=== PATIENT | female | born 1990 | race Caucasian/White ===

== ENCOUNTER 2018-09-12 09:39 | Emergency (ER) | END 2018-09-12 10:50 | disposition home or self-care (01) ==

== ENCOUNTER 2019-02-17 19:06 | Emergency (ER) | payer SELFPAY ==
[~2019-02-17] VITALS: Ht 165.1 cm; Wt 71.9 kg
[~2019-02-17 19:06] MED LIST: AZIT250T PO; DOXY100T20 PO; IBUP-1561 PO; POLY10DR19 BOTH EYES
[2019-02-17 19:08] VITALS: BP 164/58; PULSE 118; RESP 19; Ht 165.1 cm; Wt 71.9 kg
[2019-02-17] MEDS ORDERED: HYDROCODONE/APAP (5/325) TAB PO ONE (19:30)
[2019-02-17] MEDS ORDERED: CLIN300C10 PO (19:55)
[2019-02-17] MEDS ORDERED: SULF1TAB31 PO (19:55)
[2019-02-17] MEDS ORDERED: BACITRACIN 0.9 GM OINT TOP ONE (20:00)
--- NOTE | 2019-02-17 20:09 | ERD ---
ER Documentation Chief Complaint Chief Complaint PITBULL DOG BITE RIGHT ARM, LAST NIGHT HPI 28-year-old female presents with complaint of dog bite to the right arm last night. Says that she was walking and a dog that was on a leash came up to her bit her on her arm and then the python architect and the dog both ran away. Has not been taking any treatments. He denies any fevers, chills, nausea, vomiting, diarrhea, or any other systemic symptoms. Allergic to penicillins and amoxicillin. Denies medical history. ROS All systems reviewed and are negative except as per history of present illness. Medications Home Meds Active Scripts Hydrocodone/Acetaminophen ([place] 5-325 Tablet) 1 Each Tablet, 1 TAB PO Q6H PRN for PAIN, #7 TAB Prov:TONI KWAN 02/17/19 Sulfamethoxazole/Trimethoprim* (Bactrim Ds* Tablet) 1 Each Tablet, 1 TAB PO BID for animal bite for 10 Days, #14 TAB Prov:TONI KWAN 02/17/19 Clindamycin Hcl* (Clindamycin Hcl*) 300 Mg Capsule, 300 MG PO QID for animal bite for 10 Days, CAP Prov:TONI KWAN 02/17/19 Polymyxin B Sulfate-TMP* (Polymyxin B-TMP Eye Drops*) 10 Ml Drops, 1 DROP BOTH EYES QID for 7 Days, EA Prov:ALEJANDRO KAUR MD 09/12/18 Ibuprofen* (Motrin*) 400 Mg Tab, 400 MG PO Q8, #15 TAB Prov:ALEJANDRO KAUR MD 09/12/18 Doxycycline Hyclate* (Doxycycline Hyclate*) 100 Mg Tablet.dr, 100 MG PO BID for 7 Days, TAB Prov:ALEJANDRO KAUR MD 09/12/18 Azithromycin* (Zithromax*) 250 Mg Tablet, 250 MG PO .[place] DIRECTED, #6 TAB TAKE 500 MG (2 TABS) THE FIRST DAY THEN 250 MG (1 TAB) DAYS 2-5 Prov:ALEJANDRO KAUR MD 09/12/18 Allergies Allergies: Coded Allergies: Penicillins (Verified Allergy, Unknown, 09/12/18) amoxicillin (Verified Allergy, Unknown, 09/12/18) PMhx/Soc History of Surgery: Yes (Tonsillectomy) Anesthesia Reaction: No Hx Miscellaneous Medical Probl: Yes (seasonal allergies) Hx Alcohol Use: Yes (social) Hx Substance Use: Yes (marijuana) Hx Tobacco Use: No Smoking Status: Never smoker FmHx Family History: No diabetes, No coronary disease, No other Physical Exam Vitals Vital Signs Date Temp Pulse Resp B/P (MAP) Pulse Ox O2 O2 Flow FiO2 Time Delivery Rate 02/17/19 98.2 118 19 164/58 98 19:08 (93) Physical Exam Const: No acute distress Head: Atraumatic Eyes: Normal Conjunctiva ENT: Normal External Ears, Nose and Mouth. Neck: Full range of motion. No meningismus. Resp: Clear to auscultation bilaterally Cardio: Regular rate and rhythm, no murmurs Abd: Soft, non tender, non distended. Normal bowel sounds Skin: 1 cm laceration noted over the right forearm. There is no foreign bodies noted. No bleeding or discharge noted. No surrounding erythema or edema. No other signs of infection. Distal pulses intact. Range of motion intact. Distal sensation intact. Back: No midline or flank tenderness Ext: No cyanosis, or edema Neur: Awake and alert Psych: Normal Mood and Affect Results 24 hrs Laboratory Tests Test 02/17/19 20:10 POC Beta HCG, Qualitative NEGATIVE Current Medications Medications Dose Sig/Gail Start Time Status Last (Trade) Ordered Route PRN Stop Time Admin Dose Reason Admin 1 tab ONCE ONCE 02/17/19 DC 02/17/19 Acetaminophen PO 19:30 02/17/19 19:38 / 19:33 Hydrocodone Bitart ([place] (5/325)) Bacitracin 1 applic ONCE ONCE 02/17/19 DC 02/17/19 (Bacitracin TOP 20:00 02/17/19 19:38 Oint (Ud)) 20:01 Procedures/MDM DIAGNOSTIC IMAGING REPORT Patient: GRACE THOMAS : 1990 Age: 28 Sex: F MR #: [id number] DOS: 02/17/191928 Ordering MD: TONI KWAN Location: [facility] Room/Bed: PROCEDURE: XR Forearm. CLINICAL INDICATION: Dog bite. Swelling. Rule out foreign body. TECHNIQUE: 2 views of the right forearm were obtained. COMPARISON: No prior studies are available for comparison. FINDINGS: There is normal mineralization and alignment. No fracture or osseous lesion is identified. There are normal joints without evidence of arthritis or effusion. The soft tissues are markable for significant swelling and edema of the posterior dorsal soft tissues of the proximal right forearm. No underlying foreign body is identified. IMPRESSION: 1. Posterior dorsal soft tissue swelling and edema. 2. The underlying osseous structures are intact. 3. No radiopaque foreign body is identified. 4. No bony fracture or dislocation is present. RPTAT: HMJB .Ernie Mccray MD, MD Date Time Electronically viewed and signed by .Ernie Mccray MD, on 02/17/2019 20:22 .B/ CC: TONI KWAN [phone] MDM: Patient states that she was bitten by people just a few miles from here, given the lack of rabies in this area of low suspicion for rabies. This was confirmed with my supervising physician as well. In addition patient has no systemic symptoms. X-ray was taken of the right arm to rule out any retained foreign body such as teeth. Results within normal limits. I have low suspicion for infection, neurovascular compromise, compartment syndrome, retained foreign bodies, or any other emergent condition. Given patient's allergy to amoxicillin and penicillin patient was placed on clindamycin and Bactrim. Patient advised to follow-up in 2 days for wound check. Patient discharged with strict ER precautions. Patient advised to follow up with PMD. All questions answered at discharge. Departure Diagnosis: Primary Impression: Bite wound Condition: Stable Patient Instructions: Wound Care, Animal Bite, General Referrals: [facility] YOU HAVE RECEIVED A MEDICAL SCREENING EXAM AND THE RESULTS INDICATE THAT YOU DO NOT HAVE A CONDITION THAT REQUIRES URGENT TREATMENT IN THE EMERGENCY DEPARTMENT. FURTHER EVALUATION AND TREATMENT OF YOUR CONDITION CAN WAIT UNTIL YOU ARE SEEN IN YOUR DOCTORS OFFICE WITHIN THE NEXT 1-2 DAYS. IT IS YOUR RESPONSIBILITY TO MAKE AN APPOINTMENT FOR FOLOW-UP CARE. IF YOU HAVE A PRIMARY DOCTOR --you should call your primary doctor and schedule an appointment IF YOU DO NOT HAVE A PRIMARY DOCTOR YOU CAN CALL OUR PHYSICIAN REFERRAL HOTLINE AT IF YOU CAN NOT AFFORD TO SEE A PHYSICIAN YOU CAN CHOSE FROM THE FOLLOWING [facility] CLINICS [facility] [address] [facility] [address] [email or web address] [address] [facility] [address] [facility] [address] [facility]. [facility]. [address] Additional Instructions: FOLLOW UP WITH YOUR PRIMARY CARE PHYSICIAN TOMORROW.Return to this facility if you are not improving as expected. TONI KWAN Feb 17, 2019 20:09
[2019-02-17] MEDS ORDERED: HYDR-4011 PO (20:32)
== END 2019-02-17 20:59 | disposition home or self-care (01) ==
LOC: FTE 19:06
DX: S51.811A Laceration without foreign body of right forearm, initial encounter (principal); W54.0XXA Bitten by dog, initial encounter; Y92.9 Unspecified place or not applicable
CPT/HCPCS: 81025

== ENCOUNTER 2019-04-18 21:23 | Emergency (ER) | payer SELFPAY ==
[~2019-04-18] VITALS: Ht 170.2 cm; Wt 73.8 kg
[~2019-04-18 21:23] MED LIST changes: +CLIN300C10 PO; +HYDR-4011 PO; +SULF1TAB31 PO
[2019-04-18 22:00] VITALS: BP 141/75; PULSE 83; RESP 18; Ht 170.2 cm; Wt 73.8 kg
[2019-04-19] MEDS ORDERED: AZIT500T2 PO (00:13)
[2019-04-19] MEDS ORDERED: MED4DP PO (00:14)
[2019-04-19] MEDS ORDERED: ONDA4TAB14 PO (00:15)
[2019-04-19] MEDS ORDERED: AZIT250T PO (00:15)
--- NOTE | 2019-04-19 00:18 | ERD ---
ER Documentation Chief Complaint Chief Complaint sore thoat/cough x 2 days HPI 28 year old female present with cold like symptoms x 2 days. Pt reports that she has a sore throat, productive cough with yellow phlegm, slight HUITRON, and malaise. She also reports nasal congestion and clear rhinorrhea. She denies any abd pain, Vomiting/diarrhea. She denies any sick contacts or recent travel. She reports that she has taken OTC medications such as Dayquil with no relief. She has not recorded her temp at home but reports feeling warm. She reports sinus pressure and pain which is worse looking down. ROS All systems reviewed and are negative except as per history of present illness. Medications Home Meds Active Scripts Azithromycin* (Zithromax*) 250 Mg Tablet, 250 MG PO .ZPACK DIRECTED, #6 TAB TAKE 500 MG (2 TABS) THE FIRST DAY THEN 250 MG (1 TAB) DAYS 2-5 Prov:JENNIFER BORRERO PA-C 04/19/19 Ondansetron (Ondansetron Odt) 4 Mg Tab.rapdis, 4 MG PO Q6H PRN for NAUSEA AND/OR VOMITING, #10 TAB Prov:JENNIFER BORRERO PA-C 04/19/19 Methylprednisolone* (Medrol* DOSE PACK) 4 Mg/Dose-Pack Tab.ds.pk, 4 MG PO . DIRECTED for 5 Days, #1 PACKET Prov:JENNIFER BORRERO PA-C 04/19/19 Hydrocodone/Acetaminophen ([place] 5-325 Tablet) 1 Each Tablet, 1 TAB PO Q6H PRN for PAIN, #7 TAB Prov:TONI KWAN 02/17/19 Sulfamethoxazole/Trimethoprim* (Bactrim Ds* Tablet) 1 Each Tablet, 1 TAB PO BID for animal bite for 10 Days, #14 TAB Prov:TONI KWAN 02/17/19 Clindamycin Hcl* (Clindamycin Hcl*) 300 Mg Capsule, 300 MG PO QID for animal bite for 10 Days, CAP Prov:TONI KWAN 02/17/19 Polymyxin B Sulfate-TMP* (Polymyxin B-TMP Eye Drops*) 10 Ml Drops, 1 DROP BOTH EYES QID for 7 Days, EA Prov:ALEJANDRO KAUR MD 09/12/18 Ibuprofen* (Motrin*) 400 Mg Tab, 400 MG PO Q8, #15 TAB Prov:ALEJANDRO KAUR MD 09/12/18 Doxycycline Hyclate* (Doxycycline Hyclate*) 100 Mg Tablet.dr, 100 MG PO BID for 7 Days, TAB Prov:ALEJANDRO KAUR MD 09/12/18 Azithromycin* (Zithromax*) 250 Mg Tablet, 250 MG PO .[place] DIRECTED, #6 TAB TAKE 500 MG (2 TABS) THE FIRST DAY THEN 250 MG (1 TAB) DAYS 2-5 Prov:ALEJANDRO KAUR MD 09/12/18 Discontinued Scripts Azithromycin* (Zithromax* Tri-Devan) 500 Mg Tablet, 500 MG PO DAILY for 5 Days, TAB Prov:JENNIFER BORRERO PA-C 04/19/19 Allergies Allergies: Coded Allergies: Penicillins (Verified Allergy, Unknown, 09/12/18) amoxicillin (Verified Allergy, Unknown, 09/12/18) PMhx/Soc History of Surgery: Yes (Tonsillectomy) Anesthesia Reaction: No Hx Miscellaneous Medical Probl: Yes (seasonal allergies) Hx Alcohol Use: Yes (social) Hx Substance Use: Yes (marijuana) Hx Tobacco Use: No Smoking Status: Never smoker FmHx Family History: No diabetes, No coronary disease, No other Physical Exam Vitals Vital Signs Date Temp Pulse Resp B/P (MAP) Pulse Ox O2 O2 Flow FiO2 Time Delivery Rate 04/18/19 98.4 83 18 141/75 96 22:00 (97) Physical Exam Const: No acute distress Head: NCAT, Eyes: Normal Conjunctiva, PERRLA, ENT: Normal External Ears, Ear cannals clear bilat. TM nonbulding bilat Nose: midline, boggy clear d/c Mouth: pink and moist. Throat without exudates, no tonsils present. nonerythematous, Neck: Full range of motion. No LAD Resp: Clear to auscultation bilaterally Cardio: Regular rate and rhythm Abd: Soft, non tender, non distended. Normal bowel sounds Ext: No cyanosis, or edema Neur: Awake and alert Psych: Normal Mood and Affect Procedures/MDM ED COURSE: The patient was stable throughout ED course. I kept the patient informed of laboratory and diagnostic imaging results throughout the ED course. MEDICATIONS GIVEN: [None.] MEDICAL DECISION MAKING: Patient is a 28 year old female that presents to the ED with symptoms consistent with a viral acute upper respiratory infection. Patient's physical exam includes lungs which were clear to auscultation and a normal pulse oximetry. There is a low suspicion for pneumonia, pneumothorax, mononucleosis, pulmonary embolism, epiglottitis, otitis media, otitis externa, viral/strep pharyngitis, sinusitis, myocarditis, pericarditis, endocarditis, peritonsillar abscess, mastoiditis, retropharyngeal abscess, meningitis, sepsis, acute abdomen or other emergent conditions. Fluids, rest, and symptomatic treatment are recommended for the management of patient's symptoms. In addition, the pt was provided Z pack and instructed to fill the prescription if symptoms do not improve instead of Augmentin due to the patient's allergies. A Medrol dose pack was prescribed for the patient to help with sinus inflammation. Zofran was prescribed to help with nausea symptoms. Vital signs were reviewed. Patient is afebrile. Patient was not hypoxic. Patient was hemodynamically stable. PRESCRIPTION: Medrol dose pack, Z pack, Zofran DISCHARGE: At this time, patient is stable for discharge and outpatient management. I have instructed the patient to follow-up with his/her primary care physician in 1-2 days. I have discussed with the patient the possibility of needing to see a specialist for further workup and imaging studies if symptoms persist. I have instructed the patient to promptly return to the ER for any new or worsening symptoms including increased pain, fever, nausea, vomiting, weakness or LOC. The patient and/or family expressed understanding of and agreement with this plan. All questions were answered. Home care instructions were provided. Disclaimer: Inadvertent spelling and grammatical errors are likely due to EHR /dictation software use and do not reflect on the overall quality of patient care. Also, please note that the electronic time recorded on this note does not necessarily reflect the actual time of the patient encounter. Departure Diagnosis: Primary Impression: Nausea Additional Impression: Sinusitis, acute Sinusitis location: unspecified location Recurrence: not specified as recu rrent Qualified Codes: J01.90 - Acute sinusitis, unspecified Condition: Fair Patient Instructions: Sinusitis, Abx Tx Referrals: [facility] YOU HAVE RECEIVED A MEDICAL SCREENING EXAM AND THE RESULTS INDICATE THAT YOU DO NOT HAVE A CONDITION THAT REQUIRES URGENT TREATMENT IN THE EMERGENCY DEPARTMENT. FURTHER EVALUATION AND TREATMENT OF YOUR CONDITION CAN WAIT UNTIL YOU ARE SEEN IN YOUR DOCTORS OFFICE WITHIN THE NEXT 1-2 DAYS. IT IS YOUR RESPONSIBILITY TO MAKE AN APPOINTMENT FOR FOLOW-UP CARE. IF YOU HAVE A PRIMARY DOCTOR --you should call your primary doctor and schedule an appointment IF YOU DO NOT HAVE A PRIMARY DOCTOR YOU CAN CALL OUR PHYSICIAN REFERRAL HOTLINE AT IF YOU CAN NOT AFFORD TO SEE A PHYSICIAN YOU CAN CHOSE FROM THE FOLLOWING [facility] [address] [facility] [address] [facility] [address] [facility] [address] [facility] [address] [facility] [facility] [address] [facility]. [facility] YOU HAVE RECEIVED A MEDICAL SCREENING EXAM AND THE RESULTS INDICATE THAT YOU DO NOT HAVE A CONDITION THAT REQUIRES URGENT TREATMENT IN THE EMERGENCY DEPARTMENT. FURTHER EVALUATION AND TREATMENT OF YOUR CONDITION CAN WAIT UNTIL YOU ARE SEEN IN YOUR DOCTORS OFFICE WITHIN THE NEXT 1-2 DAYS. IT IS YOUR RESPONSIBILITY TO MAKE AN APPOINTMENT FOR FOLOW-UP CARE. IF YOU HAVE A PRIMARY DOCTOR --you should call your primary doctor and schedule and appointment IF YOU DO NOT HAVE A PRIMARY DOCTOR YOU CAN CALL OUR PHYSICIAN REFERRAL HOTLINE AT . IF YOU CAN NOT AFFORD TO SEE A PHYSICIAN YOU CAN CHOSE FROM THE FOLLOWING [facility]: [facility] [address] [place] [address] [facility] [address] [place] [address] [facility] + [facility] [address] [place] [address] Additional Instructions: FOLLOW UP WITH YOUR PRIMARY CARE PHYSICIAN TOMORROW.Return to this facility if you are not improving as expected. JENNIFER BORRERO PA-C Apr 19, 2019 00:18
== END 2019-04-19 00:28 | disposition home or self-care (01) ==
LOC: FTE 21:23
DX: J01.90 Acute sinusitis, unspecified (principal); R11.0 Nausea
CPT/HCPCS: 99283